=== PATIENT | male | born 1960 | race Caucasian/White ===

== ENCOUNTER 2017-01-12 07:13 | Outpatient (CLI) ==
[2017-01-12 07:34] VITALS: BMI 31.1
== END 2017-01-12 07:14 | disposition home or self-care (01) ==
LOC: AMBL 07:13
PROVIDERS: ATTEND Internal Medicine
DX: R44.3 Hallucinations, unspecified (principal)

== ENCOUNTER 2017-01-12 07:24 | Emergency (ER) ==
[2017-01-12 07:34] VITALS: BP 154/86; TEMP 98.4; BMI 31.1
[2017-01-12 08:06] LABS: BASOPHILS % (AUTO) 0.5 % (0.0-3.0); EOSINOPHILS # (AUTO) 0.1 K/ul (0.0-0.7); EOSINOPHILS % (AUTO) 1.8 % (0.0-7.0); HEMATOCRIT 40.6 % (42.0-52.0); HEMOGLOBIN 13.9 g/dl (14.0-18.0); IMMATURE GRANULOCYTE % (AUTO) 0.3 % (0.0-5.0); LYMPHOCYTES # (AUTO) 1.7 K/uL (0.60-3.4); LYMPHOCYTES % (AUTO) 21.5 (10.0-50.0); MEAN CORPUSCULAR HEMOGLOBIN 30.5 pg (27.0-31.0); MEAN CORPUSCULAR HGB CONC 34.2 (31.8-35.4); MEAN CORPUSCULAR VOLUME 89.2 fl (80.0-94.0); MONOCYTES # (AUTO) 0.6 K/uL (0.4-2.0); MONOCYTES % (AUTO) 7.2 (0-10); NEUTROPHILS # (AUTO) 5.4 K/ul (2.0-6.9); NEUTROPHILS % (AUTO) 68.7; PLATELET COUNT 170 10^3/uL (140-440); RED BLOOD COUNT 4.55 10^6/ul (4.70-6.10); WHITE BLOOD COUNT 7.82 K/ul (4.2-10.2)
--- NOTE | 2017-01-12 08:42 | CT ---
EXAM: CT BRAIN HISTORY: Dizziness TECHNIQUE: CT brain without intravenous contrast. 5-mm axial sections with Reformations. COMPARISON: None FINDINGS: Brain is unremarkable without distinct evidence of hemorrhage or large vessel distribution recent ischemic infarction. There is no suggestion of acute hydrocephalus or subdural fluid collection. N o mass or mass effect. Cranium is within normal limits. Mastoid air cells are aerated. The visualized paranasal sinuses r eveal areas of mucosal thickening. IMPRESSION: 1. No obvious acute intracranial process. 2. Chronic sinus disease.
[2017-01-12 08:49] LABS: ACETAMINOPHEN < 3 ug/ml (10-30); ALANINE AMINOTRANSFERASE 18 U/L (12-78); ALBUMIN 3.6 g/dL (3.4-5.0); ALKALINE PHOSPHATASE 71 U/L (50-136); ASPARTATE AMINO TRANSFERASE 12 U/L (15-37); BILIRUBIN,TOTAL 0.74 mg/dL (0.00-1.20); BLOOD UREA NITROGEN 15 mg/dL (7-18); BUN/CREATININE RATIO 16.12; CALCIUM 9.4 mg/dL (8.2-10.2); CARBON DIOXIDE 30 mmol/L (21-32); CHLORIDE 103 mmol/L (98-107); CREATINE KINASE 138 U/L; CREATININE 0.93 mg/dL (0.60-1.10); GLUCOSE 140 mg/dL (70-100); SALICYLATE < 5.0 mg/dL (2.8-20.0); SODIUM 139 mmol/L (136-145); TOTAL PROTEIN 6.6 g/dL (6.4-8.2)
[2017-01-12 08:51] LABS: CREATINE KINASE MB 1.6 ng/ml (0.0-3.6)
[2017-01-12 09:36] LABS: BILIRUBIN,URINE Negative (NEGATIVE); KETONES,URINE Negative (NEGATIVE); LEUKOCYTE ESTERASE ,URINE Negative (NEGATIVE); NITRITE,URINE Negative (NEGATIVE); PROTEIN,URINE Negative (NEGATIVE); URINE, BLOOD Trace-intact (NEGATIVE)
[2017-01-12 09:40] LABS: ADD URINE MICROSCOPIC YES
--- NOTE | 2017-01-12 09:57 | ED.PDOC ---
General ED Provider: Dr. NICCI REDDY Chief Complaint: Dizziness Stated Complaint: dizziness and talking to himself Time Seen by Physician: 07:30 (told EMS he is talking to himself does not hear voices ) Mode of Arrival: Stretcher Information Source: Patient Exam Limitations: No limitations Nursing and Triage Documentation Reviewed and Agree: Yes Neurological Complaint Exam - Dizziness Complaint/Exam Last Known Well: unknown Duration: 1 day Symptoms Are: Resolved Timing: Intermittent Initial Severity: Mild Current Severity: None Character: Reports: Dizzy Aggravating: Reports: None Alleviating: Reports: None Associated Signs and Symptoms: Denies: Nausea, Vomiting, Diaphoresis, Tinnitus, Chest pain, Short of air, Palpitations, Unsteady gait, GI blood loss, Visual changes, Decreased oral intake, Change in medication, Change in diet, OTC meds, Loss of balance Related History: Similar episode Review of Systems - Review Of Systems Constitutional: Reports: No symptoms Eyes: Reports: No symptoms Ears, Nose, Mouth, Throat: Reports: No symptoms Respiratory: Reports: No symptoms Cardiac: Reports: No symptoms GI: Reports: No symptoms : Reports: No symptoms Musculoskeletal: Reports: No symptoms Skin: Reports: No symptoms Neurological: Reports: Other (dizziness) Endocrine: Reports: No symptoms Hematologic/Lymphatic: Reports: No symptoms All Other Systems: Reviewed and Negative Past Medical History - Past Medical History Previously Healthy: Yes Endocrine: Reports: None Cardiovascular: Reports: None Respiratory: Reports: None Hematological: Reports: None Gastrointestinal: Reports: None Genitourinary: Reports: None Neuro/Psych: Reports: None Musculoskeletal: Reports: None Cancer: Reports: None - Surgical History General Surgical History: Reports: None - Family History Family History: Reports: None - Social History Smoking Status: Current every day smoker, Heavy tobacco smoker Hx Substance Use: No Alcohol Screening: None Physical Exam - Physical Exam Appearance: Well-appearing, No pain distress, Well-nourished Eyes: FRANCISCO, EOMI, Conjunctiva clear ENT: Ears normal, Nose normal, Oropharynx normal Respiratory: Airway patent, Breath sounds clear, Breath sounds equal, Respirations nonlabored Cardiovascular: RRR, Pulses normal, No rub, No murmur GI/: Soft, Nontender, No masses, Bowel sounds normal, No Organomegaly Musculoskeletal: Normal strength, ROM intact, No edema, No calf tenderness Skin: Warm, Dry, Normal color Neurological: Sensation intact, Motor intact, Reflexes intact, Cranial nerves intact, Alert, Oriented Psychiatric: Affect appropriate, Mood appropriate Interpretation - Radiology Interpretation Radiology Interpretation By: Radiologist Radiology Results: No acute changes Critical Care Note - Critical Care Note Total Time (mins): 0 Course - Course Hematology/Chemistry: 01/12/17 07:55 01/12/17 07:55 Orders, Labs, Meds: Lab Review 01/12/17 01/12/17 07:55 09:25 WBC 7.82 RBC 4.55 L Hgb 13.9 L Hct 40.6 L MCV 89.2 MCH 30.5 MCHC 34.2 RDW Coeff of Akila 13.7 Plt Count 170 Immature Gran % (Auto) 0.3 Neut % (Auto) 68.7 Lymph % (Auto) 21.5 Woodruff % (Auto) 7.2 Eos % (Auto) 1.8 Baso % (Auto) 0.5 Immature Gran # (Auto) 0.0 Neut # 5.4 Lymph # 1.7 Woodruff # 0.6 Eos # 0.1 Baso # 0.0 Sodium 139 Potassium 4.0 Chloride 103 Carbon Dioxide 30 Anion Gap 10.0 BUN 15 Creatinine 0.93 Estimated GFR (MDRD) 85.00 BUN/Creatinine Ratio 16.12 Glucose 140 H Calcium 9.4 Total Bilirubin 0.74 AST 12 L ALT 18 Alkaline Phosphatase 71 Total Creatine Kinase 138 CK-MB (CK-2) 1.6 CK-MB (CK-2) % 1.80677 Troponin I < 0.0100 Total Protein 6.6 Albumin 3.6 Globulin 3.0 Albumin/Globulin Ratio 1.20 TSH 0.602 Free T4 1.07 Urine Color Yellow Urine Clarity Clear Urine pH 6.0 Ur Specific [place] 1.025 Urine Protein Negative Urine Glucose (UA) Negative Urine Ketones Negative Urine Blood Trace-intact Urine Nitrite Negative Urine Bilirubin Negative Urine Urobilinogen 1.0 Ur Leukocyte Esterase Negative Urine Microscopic RBC 2-5 Urine Microscopic WBC 0-2 Ur Squamous Epith Cells Not present Urine Mucus Trace Salicylate Level mg/dL < 5.0 Acetaminophen < 3 L Orders Category Date Time Status EKG-(ED ONLY) Stat CARDIO 01/12/17 07:40 Completed ED IV/MEDIPORT/POWERPORT .ONCE EMERGENCY 01/12/17 07:40 Active Mental Health Consult [ED MENTAL HEALTH CONSULT] .ONCE EMERGENCY 01/12/17 07: 41 Active ACETAMINOPHEN Stat LAB 01/12/17 07:55 Completed CBC W/ AUTO DIFF Stat LAB 01/12/17 07:55 Completed COMPREHENSIVE METABOLIC PANEL Stat LAB 01/12/17 07:55 Completed CREATINE KINASE Stat LAB 01/12/17 07:55 Completed FREE T4 (FREE THYROXINE) Stat LAB 01/12/17 07:55 Completed SALICYLATE Stat LAB 01/12/17 07:55 Completed THYROID STIMULATING HORMONE Stat LAB 01/12/17 07:55 Completed TROPONIN I Stat LAB 01/12/17 07:55 Completed URINALYSIS C & S IF INDICATED Stat LAB 01/12/17 09:25 Completed 0.9 % Sodium Chloride [Saline Flush] MEDS 01/12/17 07:40 Active 1 syr IVF PRN PRN CT HEAD W/O CONTRAST Stat RADS 01/12/17 07:42 Completed Medications Generic Name Dose Route Start Last Admin Trade Name Freq PRN Reason Stop Dose Admin Sodium Chloride 1 syr 01/12/17 07:40 Saline Flush IVF PRN PRN To flush IV Vital Signs: Temp Pulse Resp BP Pulse Ox 01/12/17 07:25 98.4 F 77 18 154/86 H 93 L Departure - Departure Time of Disposition: 09:58 (not in active psychosis, does not hear voices ) Disposition: HOME SELF-CARE Discharge Problem: Dizziness Instructions: Dizziness (ED) Condition: Good Pt referred to PMD for follow-up: No Additional Instructions: Please call your Family Physician as soon as possible to schedule a follow-up appointment. Allergies/Adverse Reactions: Allergies Penicillins Adverse Reaction (Verified 01/12/17 07:37) Home Medications: Ambulatory Orders 1 [No Reported Medications] 01/12/17
== END 2017-01-12 10:51 | disposition home or self-care (01) ==
LOC: ED 07:24
DX: R42 Dizziness and giddiness (principal); F17.210 Nicotine dependence, cigarettes, uncomplicated
CPT/HCPCS: 36415; 80053; 80307; 81001; 82550; 82553; 84439; 84443; 84484; 85025; 93005; 93010; 99283